=== PATIENT | male | born 1970 | race African-American/Black ===

== ENCOUNTER 2016-02-15 20:19 | Emergency (ER) | payer OTHER ==
[~2016-02-15] VITALS: Ht 170.2 cm; Wt 91.2 kg
--- NOTE | ~2016-02-15 | EKG ---
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 : 1970 Requested By: Louie Chand Order Number: [id number] MD: Randy Rodriguez Measurements Intervals [place] Rate: 107 P: 12 IN: 175 QRS: 21 QRSD: 79 T: 8 QT: 352 QTc: 470 Interpretive Statements Sinus tachycardia Poor R-wave progression No previous ECG available for comparison Electronically Signed On 02-17-2016 14:11:12 PHYSICS TECHNICIAN by Randy Rodriguez [email or web address] <ELECTRONICALLY SIGNED> By: Randy Rodriguez MD, [facility] 02/17/16 1411 2039 38 Randy Rodriguez MD, FACC /EPI
[2016-02-15] MEDS ORDERED: FLEXERIL PO (21:30)
[2016-02-15] MEDS ORDERED: NORCO 5-325 TA1 EACH PO (21:30)
[2016-02-15] MEDS ORDERED: AMLODIPINE BESY10 MG PO (21:34)
[2016-02-15 21:35] VITALS: BP 138/82
== END 2016-02-15 21:52 | disposition home or self-care (01) ==
LOC: ER 20:19
DX: S46.002A Unspecified injury of muscle(s) and tendon(s) of the rotator cuff of left shoulder, initial encounter (principal); I10 Essential (primary) hypertension; Z88.0 Allergy status to penicillin; F10.99 Alcohol use, unspecified with unspecified alcohol-induced disorder; X50.0XXA Overexertion from strenuous movement or load, initial encounter; Y93.89 Activity, other specified; Y92.89 Other specified places as the place of occurrence of the external cause; Y99.8 Other external cause status